=== PATIENT | female | born 1990 | race Caucasian/White ===

== ENCOUNTER 2016-12-30 07:16 | Emergency (ER) | payer OTHER ==
[~2016-12-30] VITALS: Ht 160 cm; Wt 54.4 kg
--- NOTE | 2016-12-30 08:04 | ED GI/GU/ABDOMINAL COMPLAINT ---
History of Present Illness General Chief Complaint: Abdominal Pain/Flank Pain Stated Complaint: ABD PAIN Source: patient Exam Limitations: no limitations Vital Signs & Intake/Output Vital Signs & Intake/Output Vital Signs Date Time Temp Pulse Resp B/P Pulse O2 O2 Flow FiO2 Ox Delivery Rate 12/30 1132 96.8 55 20 108/68 95 Room Air 12/30 0950 97.8 61 18 114/74 98 12/30 0724 97.8 82 20 100/77 97 Room Air Allergies Coded Allergies: No Known Allergies (12/30/16) Reconcile Medications Hyoscyamine (Levsin) 0.125 MG TABLET 1-2 TAB PO Q6P PRN ABDOMINAL CRAMPS Metoclopramide HCl (Reglan) 10 MG TABLET 1 TAB PO Q6 PRN NAUSEA/VOMITING 30 minutes before meals and bedtime Triage Note: PT C/O LOWER ABDOMINAL PAIN X 24 HOURS. PT STATES +NAUSEA BUT DENIES V/D. DENIES URINARY S&S Triage Nurses Notes Reviewed? yes ? n Is pt currently ? No HPI: patient presents for evaluation of lowere abdominal pain. The pain has been present for about 36 hours, gradual in onset and worsening. The pain is a 9 out of 10 in intensity, constant, occasionally sharp and diffuse in the abdomen. Last normal bowel movement was last evening. Patient otherwise denies vomiting diarrhea fever or cold symptoms. No known ill contacts. LMP 2 weeks ago apparently normal patient denies possibility of . She tried patient tried acetaminophen without relief. Past History Travel History Traveled to [place] past 21 day No Medical History Any Pertinent Medical History? none Surgical History Surgical History: IUD Psychosocial History What is your primary language Uzbek Tobacco Use: Never used ETOH Use: occasional use Illicit Drug Use: denies illicit drug use Family History Hx Contributory? No Review of Systems Review of Systems Constitutional: Reports: no symptoms. EENTM: Reports: no symptoms. Respiratory: Reports: no symptoms. Cardiovascular: Reports: no symptoms. GI: Reports: see HPI. Genitourinary: Reports: no symptoms. Musculoskeletal: Reports: no symptoms. Skin: Reports: no symptoms. Neurological/Psychological: Reports: no symptoms. Hematologic/Endocrine: Reports: no symptoms. Immunologic/Allergic: Reports: no symptoms. All Other Systems: Reviewed and Negative Physical Exam Physical Exam Gastrointestinal: see below Comments: Gen.: Well-nourished, well-developed, no acute respiratory distress. Head: Normocephalic, atraumatic. Eyes: Normal inspection bilaterally Ears: Normal inspection bilaterally Nose: Normal inspection Throat/mouth : Moist mucosa Neck: Supple, full range of motion, no goiter Heart: Regular rate and rhythm, no murmurs rubs or gallops Lungs: Clear to auscultation bilaterally with normal air entry Chest: Nontender Back: Normal range of motion, no CVA tenderness Abdomen: Soft, right-sided abdominal tenderness without rebound or guarding, nondistended, normal bowel sounds, no tenderness at McBurney's point, no psoas or obturator signs. Extremities: Normal range of motion grossly, equal radial pulses, no cyanosis clubbing or edema Neurologic: Cranial nerves grossly intact, speech is clear Skin: warm and dry Psychiatric: Calm, cooperative, no apparent delusions or hallucinations Core Measures ACS in differential dx? No Severe Sepsis Present: No Septic Shock Present: No Progress Differential Diagnosis: diverticulitis, ovarian cyst, UTI/pyelo Plan of Care: Orders Procedure Date/time Status URINE 12/31 803 Complete URINALYSIS 12/31 803 Complete LIPASE 12/31 803 Complete HIGH SENSITIVITY CRP 12/30 08 Complete COMPREHENSIVE METABOLIC PANEL 12/30 08 Complete CBC WITHOUT DIFFERENTIAL 12/31 803 Complete Laboratory Tests 12/30/16 0809: Anion Gap 9, Estimated GFR > 60, BUN/Creatinine Ratio 14.0, Glucose 104 H, Calcium 9.9, Total Bilirubin 0.8, AST 15, ALT 25, Alkaline Phosphatase 38, C- React Prot High Sens 0.1 L, Total Protein 6.4, Albumin 4.1, Globulin 2.3, Albumin/Globulin Ratio 1.8, Lipase 146, CBC w Diff NO MAN DIFF REQ, RBC 4.42, MCV 92.6, MCH 32.4 H, RDW 13.8, MPV 6.8 L, Gran % 62.4, Lymphocytes % 27.7, Monocytes % 7.9, Eosinophils % 1.6, Basophils % 0.4, Absolute Granulocytes 3.5, Absolute Lymphocytes 1.5, Absolute Monocytes 0.4, Absolute Eosinophils 0.1, Absolute Basophils 0, PUBS MCHC 35.0, Urine Color YEL, Urine Clarity CLEAR, Urine pH 7.0, Ur Specific [place] 1.010, Urine Protein NEG, Urine Ketones NEG, Urine Nitrite NEG, Urine Bilirubin NEG, Urine Urobilinogen 0.2, Ur Leukocyte Esterase NEG, Ur Microscopic EXAM NOT REQUIRED, Urine Hemoglobin NEG, Urine Glucose NEG, Urine Test NEGATIVE Diagnostic Imaging: Discussed w/RAD: CT Scan, Ultrasound. Initial ED EKG: none Comments: 12/30/2016 9:04:26 AM patient's RN states that she has. No relief/improvement with IV Toradol. Blood work is unremarkable. Given the patient's persistent pain however I have now ordered an ultrasound to evaluate the liver and biliary tree and a CAT scan to evaluate for appendicitis renal colic or other intra- abdominal pathology. 12/30/2016 9:55:10 AM CAT scan and ultrasound revealed no acute abnormality. Plan symptomatic care and follow-up with primary care physician. 12/30/2016 10:21:26 AM the patient's nausea has resolved she is still complaining of severe abdominal pain. GI cocktail and additional morphine ordered. In addition to symptomatic care i have asked patient follow-up with the GI specialist as well as a primary care physician. 12/30/2016 10:49:18 AM patient began vomiting again and she feels it was secondary to the GI cocktail. I will reevaluate later. with reevaluation, pt states she feels much better and wishes to go home. Departure Departure Disposition: HOME OR SELF CARE Condition: Stable Clinical Impression Primary Impression: Nonspecific abdominal pain Referrals: PATIENT HAS NO PRIMARY CARE DR (PCP/Family) Additional Instructions: Reglan as needed for nausea or vomiting, Levsin as needed for pain. Since the cause of your abdominal pain is unclear at this point please Follow up with a physician for reevaluation of your abdominal pain within 24 hours (either via the [facility] practice or by returning to the emergency department). Otherwise return immediately if any sudden worsening. Please note that there might be incidental findings in your evaluation that are unrelated to the current emergency department visit. Please notify your primary care doctor about this emergency department visit in order to obtain and review all of the testing performed so that these incidental findings can be monitored as needed. If you had an x-ray performed, please understand that some fractures may not be seen on the initial set of x-rays. If your symptoms persist you might need a repeat set of x-rays to check for such a fracture. If you had a laceration evaluated, please understand that foreign bodies such as glass or wood may not be visible to the naked eye or on plain x-rays. If the wound becomes red, swollen, increasingly more painful or if there is any drainage from the wound, please have it reevaluated by a physician for the possibility of a retained foreign body. Thank you for choosing the [facility] Emergency Department for your care. It was a pleasure to serve you today. Cecil Ray M.D. [facility] Departure Forms: Customer Survey General Discharge Information Prescriptions: Current Visit Scripts Metoclopramide HCl (Reglan) 1 TAB PO Q6 PRN NAUSEA/VOMITING #10 TAB 30 minutes before meals and bedtime Hyoscyamine (Levsin) 1-2 TAB PO Q6P PRN ABDOMINAL CRAMPS #20 TAB
[2016-12-30 08:27] LABS: ABSOLUTE BASOPHIL COUNT 0 /CUMM (0.0-0.2); ABSOLUTE EOSINOPHIL COUNT 0.1 /CUMM (0.0-0.7); ABSOLUTE GRANULOCYTE CT 3.5 /CUMM (1.4-6.5); ABSOLUTE LYMPH COUNT 1.5 /CUMM (1.2-3.4); ABSOLUTE MONOCYTE COUNT 0.4 /CUMM (0.10-0.60); BASOPHIL % 0.4 % (0.0-2.0); EOSINOPHIL % 1.6 % (0-5); GRANULOCYTE % 62.4 % (42.2-75.2); MEAN CORPUSCULAR HGB 32.4 PG (27.0-31.0); MEAN CORPUSCULAR VOLUME 92.6 FL (81.0-99.0); MEAN PLATELET VOLUME 6.8 FL (7.4-10.4); PLATELET COUNT 245 /CUMM (130-400); RBC DISTRIBUTION WIDTH 13.8 % (11.5-14.5); RED BLOOD CELL CT 4.42 /CUMM (4.20-5.40); WHITE BLOOD CELL COUNT 5.5 /CUMM (4.8-10.8)
--- NOTE | 2016-12-30 09:42 | CT SCAN REPORT ---
EXAMINATION: CT ABDOMEN AND PELVIS WITH CONTRAST CLINICAL INFORMATION: Appendicitis hepatitis pancreatitis right-sided abdominal pain. COMPARISON: None TECHNIQUE: Multidetector volumetric imaging was performed of the abdomen and pelvis before and after the IV administration of 98 mL of Optiray 320 intravenous contrast. Sagittal and coronal reformatted images were obtained on the technologist's workstation. DLP: 263 mGy-cm FINDINGS: LUNG BASES: The visualized lung bases are unremarkable. LIVER, GALLBLADDER, AND BILIARY TREE: The liver parenchyma is normal. There is slight prominence of the intrahepatic biliary tree likely without clinical significance gallbladder is contracted without stones identified. No surrounding inflammatory changes. Common bile duct unremarkable measuring 5 mm. PANCREAS: No surrounding inflammatory The pancreatic duct is identified measuring 3 mm. No stones or masses. SPLEEN: Normal ADRENAL GLANDS: Unremarkable. KIDNEYS AND URETERS: The kidneys are normal in size, shape, and attenuation. No hydronephrosis, hydroureter, or calculi seen. No perinephric stranding. BLADDER: Unremarkable. GASTROINTESTINAL TRACT: Oral contrast was not administered. Appendix normal. Large and small bowel unremarkable. Stomach normal. Next ABDOMINAL WALL: No significant hernia is appreciated. LYMPH NODES: Normal. VASCULAR: Unremarkable. PELVIC VISCERA: IUD in place unremarkable OSSEOUS STRUCTURES: Unremarkable. IMPRESSION: No significant abnormality. No evidence for appendicitis or pancreatitis or hepatitis
--- NOTE | 2016-12-30 09:52 | ULTRASOUND REPORT ---
EXAMINATION: US ABDOMEN LIMITED CLINICAL INFORMATION: Biliary colic right-sided abdominal pain. COMPARISON: None TECHNIQUE: Real-time imaging of the right upper quadrant abdominal viscera. FINDINGS: PANCREAS: Normal. LIVER: Normal. The liver demonstrates normal size, contour and echogenicity. No focal lesion or intrahepatic biliary duct dilatation. GALLBLADDER: Gallbladder contracted. No pericholecystic fluid no stones COMMON BILE DUCT: Normal in caliber measuring 0.4 cm in diameter. RIGHT KIDNEY: Normal. No hydronephrosis. No renal calculi or focal parenchymal lesions. The kidney measures 11.6 cm in maximum dimension. FREE FLUID: None. IMPRESSION: Normal right upper quadrant ultrasound. Gallbladder contracted but otherwise unremarkable
[2016-12-30 11:32] VITALS: BP 108/68
[2016-12-30] MEDS ORDERED: LEVSIN0.125 M1 PO (11:39)
[2016-12-30] MEDS ORDERED: REGLAN10 M1 PO (11:39)
== END 2016-12-30 11:56 ==
LOC: ERH 07:16
PROVIDERS: Emergency Medicine
DX: R10.31 Right lower quadrant pain (principal)
CPT/HCPCS: 74177; 81003; 81025; 96374; 96375; 96376; J1885; J2405; J2765